=== PATIENT | female | born 2000 | race Caucasian/White ===

== ENCOUNTER 2023-03-17 10:58 | Emergency (ER) | payer OTHER ==
[~2023-03-17] VITALS: Ht 160 cm; Wt 59.1 kg
[2023-03-17 11:12] VITALS: BP 123/73; PULSE 85; RESP 16; TEMP 98.2
[2023-03-17 11:28] LABS: COVID AG,FIA SOURCE NASAL SWAB
[2023-03-17 11:54] LABS: INFLUENZA TYPE A NEGATIVE FOR TYPE A (NEGATIVE); INFLUENZA TYPE B NEGATIVE FOR TYPE B (NEGATIVE); SARS-COV2 (COVID) ANTIGEN,FIA Negative (Negative)
[2023-03-17] MEDS ORDERED: AMOX1TAB15 PO (13:53)
== END 2023-03-17 14:01 | disposition home or self-care (01) ==
LOC: EMS 10:58
DX: J32.9 Chronic sinusitis, unspecified (principal); J45.909 Unspecified asthma, uncomplicated; Z90.49 Acquired absence of other specified parts of digestive tract; Z20.822 Contact with and (suspected) exposure to COVID-19
CPT/HCPCS: 87804; 99283